=== PATIENT | male | born 1955 | race Caucasian/White ===

== ENCOUNTER 2023-06-07 01:28 | Observation (INO) | payer MEDICARE, OTHER, SELFPAY ==
[2023-06-06 20:43] VITALS: BP 140/77
[2023-06-06 21:03] VITALS: BP 124/69
[2023-06-06 21:23] LABS: % Basophils 0.3 % (0-2); % Eosinophils 2.7 % (0-6); % Immature Granulocytes 0.5 % (0-0.5); % Lymphocytes 13.1 % (20.5-51.1); % Monocytes 13.2 % (1.7-9.3); % Neutrophils 70.2 % (42.2-75.2); Absolute Eosinophils 0.3 10^3/uL (0-0.7); Absolute Immature Granulocytes 0.1 10^3/uL (0-0.05); Absolute Lymphocytes 1.3 10^3/uL (1.2-3.4); Absolute Monocytes 1.3 10^3/uL (0.1-0.6); Hematocrit 42.1 % (39.0-52.0); Hemoglobin 14.5 g/dL (13.0-18.0); Mean Corp Hgb Conc. 34.4 g/dL (33.0-37.0); Mean Corpuscular Hgb 29.2 pg (27.0-31.0); Mean Corpuscular Volume 84.9 fL (80.0-94.0); Mean Platelet Volume 10.6 fL (7.4-10.4); Nucleated Red Blood Cells % 0 % (-); Platelet Count 140 10^3/uL (130-400); Red Blood Cell Count 4.96 10^6/uL (4.70-6.10); Red Cell Dist. Width 12.9 % (11.5-14.5)
[2023-06-06 21:39] LABS: ALT (SGPT) 38 U/L (0-50); AST (SGOT) 31 U/L (17-59); Albumin 4.1 g/dl (3.5-5.0); Alkaline Phosphatase 87 U/L (38-126); Blood Urea Nitrogen 18 mg/dl (9-20); Calcium 9.7 mg/dl (8.4-10.2); Carbon Dioxide 24 mmol/L (22-30); Chloride 102 mmol/L (98-107); Glucose 104 mg/dl (70-99); Potassium 3.8 mmol/L (3.5-5.1); Sodium 135 mmol/L (135-145); Total Bilirubin 0.8 mg/dl (0.2-1.3); Total Protein 6.9 g/dl (6.3-8.2); eGFR > 60.00
[2023-06-06 21:49] LABS: Troponin I < 0.012 ng/ml
[2023-06-06 22:00] VITALS: BP 127/74
[2023-06-06 23:00] VITALS: BP 113/57
[2023-06-07] VITALS: BP 153/67
--- NOTE | 2023-06-07 00:15 | ED.GENMED ---
History of Present Illness
General
Chief Complaint: Chest Pain
Source: patient
Exam Limitations: none
Time Seen by Provider: 06/06/23 21:16
Nursing documentation reviewed up to this point in time: agreed with
Travel History
Have you had any contact with someone who has COVID-19?: No
Do you have any symptoms of coronavirus? Fever > 100 degrees, chills, cough, shortness of breath, sore throat, loss of taste or smell, muscle aches, or headache?: No
History of Present Illness
History of Present Illness:
Patient with history of non-STEMI in 2018, presents to ED secondary to intermittent chest pain over the past 2 days. Chest pain described as indigestion, burning sensation, in the middle of chest, radiating up to his throat, with each episode
lasting seconds to minutes. Patient states the symptoms are similar to 2018, but without associated pressure. Patient was evaluated earlier today at his primary care physician's office and referred to ED for further evaluation and treatment.
Denies shortness of breath. Denies nausea or vomiting. Denies dizziness. Denies diaphoresis. Denies recent illness. Patient does have history reflux, but states that his symptoms are different. Denies recent travel or surgery. Denies leg pain
or swelling. Denies back pain.
Past History
Past History
ED Past Medical History: Other (Hypertension, hyperlipidemia)
Social History
Tobacco: Smoker
Alcohol: None
Family History
Family History: Other (He had a grandfather who had an PR in his 70s. There is a family history of diabetes)
Review of Systems
Review of Systems
Allergies reviewed?: Yes
All Other Systems: ROS reviewed and negative except as documented in HPI and ROS
Constitutional: Reports no symptoms
EENT: Reports no symptoms
Respiratory: Reports no symptoms
Cardiac: Reports chest pain
ABD/GI: Reports no symptoms
: Reports no symptoms
Musculoskeletal: Reports no symptoms
Skin: Reports no symptoms
Neurological: Reports no symptoms
Phy Exam
Physical Exam
Physical Exam:
Physical Exam
General: no apparent distress, not acutely ill. afebrile
Head: nc/at. eomi
Neck: supple. normal range of motion.
Heart: s1/s2 regular rate and rhythm, no murmur. equal radial pulses.
Lungs: no acute respiratory distress. clear bilaterally
Abdomen: normal bowel sounds. not tender.
Neuro: alert and oriented. no focal neurological deficits
Skin: no rash
Psychiatric: well kept. interactive and cooperative
Extremities: no edema. no calf tenderness.
Scores
Heart Score for Chest Pain Patients
STEMI patient?: No
History: Slightly or Non-Suspicious
ECG: Normal
Age: >/= 65 years
Risk Factors: >/= 3 Risk Factors or History of CAD
Troponin: </= Normal Limit
Heart Score for Chest Pain Patients: 4
Heart Score Risk: 20.3% MACE over next 6 weeks
Course
Orders/Labs/Results
Orders:
Orders
06/06/23 20:33
Electrocardiogram (*1) Urgent
Reason for Study: Chest Pain
EKG- Treatment ONCE
06/06/23 21:09
Complete Blood Count/With Diff Urgent
Comprehensive Metabolic Panel Urgent
Troponin I Urgent
06/07/23 00:39
CR Chest - 2 Views Urgent
Comment:
Reason For Exam: chest pain
06/07/23 00:42
Admit/Transfer Patient As Directed
Co-Sign Provider:
Level of Care: Observation services
Assign to:: Telemetry
Physician / Group: Nadeen Vaz
Diagnosis: chest pain
Reason for Telemetry: Chest Pain syndromes
Date to Stop Telemetry: 06/09/23
Time to Stop Telemetry: 11:00
06/07/23 00:43
Code Status As Directed
Resuscitation Status: Do not resuscitate
Reached after discussion with pt or family/Healthcare POA: Yes
DNR Bracelet Application ONCE
06/07/23 02:11
Acetaminophen [Tylenol] 650 mg PO Q4HPRN PRN
Bisacodyl [Dulcolax] 10 mg RECTAL [id number] PRN
Calcium Carbonate Chewable [Tums] 1 tablet PO Q6HPRN PRN
Docusate W/Senna [Senokot-S] 1 tablet PO BIDPRN PRN
Nitroglycerin Sublingual [Nitrostat (Sublingual)] 0.4 mg SL [id number] PRN
Polyethylene Glycol Powder [Miralax] 17 grams PO DAILYPRN PRN
hydrocodone-acetaminophen [Vicodin] 1 ea PO PRN PRN
06/07/23 02:11
CARDIOLOGY CONSULT Routine
Consulting Provider: Carrie Gomez
Was physician already notified: Yes
Activity As Directed
Activity Level: As Tolerated
Vital Signs As Directed
Frequency: Per unit guidelines
DX Deep Vein Thrombosis Video Routine
06/07/23 02:32
Basic Metabolic Panel IN AM
Complete Blood Count/No Diff IN AM
Magnesium IN AM
Troponin I Q6H
06/07/23 06:00
EKG [Electrocardiogram (*1)] IN AM
Reason for Study: Chest Pain
NPO
Allow oral meds: Yes
Allow clear liquids: No
06/07/23 08:00
Aspirin Chewable [Low Strength Aspirin] 81 mg PO DAILY
Losartan/Hydrochlorothiazide [Hyzaar 100-25 Tablet] 1 tab PO DAILY
06/07/23 09:20
Troponin I Q6H
06/07/23 18:00
Atorvastatin [Lipitor] 80 mg PO QPM
Enoxaparin Sodium [Lovenox] 40 mg SC QPM
06/09/23 11:00
DC Protocol for Telemetry ONCE
Abnormal Lab Results
06/06/23
21:09
MPV 10.6 H fL
(7.4-10.4)
Abs Immat Gran (auto) 0.1 H 10^3/uL
(0-0.05)
Absolute Neuts (auto) 7.0 H 10^3/uL
(1.4-6.5)
Absolute Monos (auto) 1.3 H 10^3/uL
(0.1-0.6)
Lymphocytes % 13.1 L %
(20.5-51.1)
Monocytes % 13.2 H %
(1.7-9.3)
Creatinine 0.6 L mg/dL
(0.7-1.3)
Glucose 104 H mg/dl
(70-99)
06/06/23 21:09
06/06/23 21:09
Vital Signs
Initial and Last Documented VS:
Initial Vital Signs
Temp Pulse Resp BP Pulse Ox
99.6 F 88 20 140/77 94
06/06/23 20:43 06/06/23 20:43 06/06/23 20:43 06/06/23 20:43 06/06/23 20:43
Last Documented Vital Signs
Temp Pulse Resp BP Pulse Ox
98 F 73 20 113/70 94
06/07/23 11:44 06/07/23 11:55 06/07/23 11:44 06/07/23 11:55 06/07/23 11:55
MDM/Problems Addressed
MDM/Problems Addressed:
Patient with an unremarkable workup in ED, including normal initial troponin. However, EKG does revealed nonspecific ST depression.
Discussed with Dr. Gomez, cardiology. In light of patient's CAD, recommends further workup, including serial cardiac enzymes as well as possible stress test.
*Critical Care Note
Total Time (30-74mins, 75-104mins- exclusive of procedures): Not Applicable
ED Attending Note
-
Portions of this chart may have been created with voice recognition software.� Occasional wrong word or��sound alike� substitutions may have occurred due to the inherent limitations of voice recognition software.
Discharge Plan
Departure
Patient Disposition: Admit
Date of Disposition: 06/07/23
Time of Disposition: 00:19
Presentation/result/management discussed w/ accepting MD/DO: Hospitalist
Discharge Problem:
Chest pain
Interventions
Interventions:
*Risk Screen - Suicide Last Done: 06/06/23 20:43
*General Assessment Last Done: 06/06/23 20:43
*Neglect/Abuse Screening Last Done: 06/06/23 20:43
ED- Fall Risk Assessment Last Done: 06/06/23 20:43
*ED COVID-19 Vaccine History Last Done: 06/06/23 20:43
*Nursing Disposition Last Done: 06/07/23 01:53
ED- Cardiac Assessment Last Done: 06/06/23 21:12
Discharge Date and Time
Discharge Date/Time: 06/07/23 01:53
--- NOTE | 2023-06-07 00:26 | HPS.HSE ---
Family Physician
-
Family Physician: Zachariah Gray
Chief Complaint
-
chest pain
History of Present Illness
Mr. Bhavin Andino is a 68 yo man with hx HTN, HLD, CAD (NSTEMI 2018 s/p PCI), GERD, presents to the ER with chest pain over past 2 days.
Patient states pain is center of chest, feels like burning. He has history of heart burn but this felt different, more central and different intensity. He states pain is not exacerbated by movement but occurred when sitting still. No
fevers/chills. No nausea/vomiting/diarrhea. He took his aspirin this evening. No rash or swelling.
Medical History
Past Medical History
Past Medical History: Reports Other ( HTN, HLD, CAD (NSTEMI 2018 s/p PCI), GERD)
Past Surgical History: Reports Other
Social History
Tobacco: Former Smoker
Alcohol: Occasional
Family History
Family History: Not pertinent
Allergies / Home Medications
Allergies reflects when Allergies were last updated in [employer].
Home Medications with original date entered in [employer]
Allergy/Medication List:
Allergies
Allergy/AdvReac Type Severity Reaction Status Date / Time
No Known Allergies Allergy Verified 06/06/23 20:42
Home Medications
Curamed 1 tab PO BID 06/04/17
aspirin 81 mg chewable tablet 81 mg PO DAILY 06/05/17
atorvastatin 80 mg tablet 80 mg PO QPM ##90 06/05/17
metoprolol succinate 25 mg tablet,extended release 24 hr 25 mg PO DAILY #90 tabs 06/05/17
nitroglycerin 0.4 mg sublingual tablet 0.4 mg sublingual [id number] PRN chest pain #25 tabs 06/05/17
hydrocodone 5 mg-acetaminophen 300 mg tablet (Vicodin) 1 ea PO PRN PRN pain 03/28/21
losartan 100 mg-hydrochlorothiazide 25 mg tablet 1 tab PO DAILY 06/07/23
Review of Systems
-
History Source: Patient
A 12 point ROS was completed and negative except as noted: Yes
Physical Exam
Vital Signs
Vital Signs
Temp Pulse Resp BP Pulse Ox
99.6 F 85 21 113/57 93
06/06/23 20:43 06/06/23 23:00 06/06/23 23:00 06/06/23 23:00 06/06/23 23:00
Physical Exam
General: No Apparent Distress and Obese
HEENT: PERRLA
Respiratory: Clear; No Wheezes
Cardiac: S1/S2 and Regular Rhythm
GI: Soft and Non Tender
Musculoskeletal: No Edema
Skin: Warm and Dry; No Rash
Neuro: AO x 3
Psych: Calm
Laboratory Results
-
06/06/23 21:09
06/06/23 21:09
Laboratory Results
Total Bilirubin 0.8 mg/dl (0.2-1.3) 06/06/23 21:09
AST 31 U/L (17-59) 06/06/23 21:09
ALT 38 U/L (0-50) 06/06/23 21:09
Alkaline Phosphatase 87 U/L (38-126) 06/06/23 21:09
Troponin I < 0.012 ng/ml 06/06/23 21:09
Data Reviewed
-
Diagnostic Radiology: Report Reviewed by me
Lab Data: Labs Reviewed by me
Impression/Plan
-
Mr. Bhavin Andino is a 68 yo man with hx HTN, HLD, CAD (NSTEMI 2018 s/p PCI), GERD, presents to the ER with intermittent chest pain over past 2 days.
Triage VS: T 99.6, P 88, RR 20, BP 140/77, Spo2 94%
LABS: WBC 10, Hg 14.5, PLT 140, Na 135, K+ 3.8, C 102, CO2 24, BUN 18, Cr 0.6, Glucose 104, liver enzymes WNL, Trop < 0.012
EKG: NSR @ 86, no ST elevations/depressions
Chest pain
Hx CAD, s/p PCI 2017
-patient had aspirin this evening
-admit to observation, telemetry
-trend Troponins
-NPO after MN for possible stress test (post cardiology eval)
-Dr. Gomez discussed case with ER; formal cardiology consult
-LPN MEDICAL ASSISTANT asa/statin
-hold LPN MEDICAL ASSISTANT metop for possible stress test
-if chest pain recurs repeat EKG; would also give tums PRN to see if helps sx as may be related to indigestion
HTN
-LPN MEDICAL ASSISTANT losartan-HCTZ
DVT PPx lovenox subQ
DNR - discussed at bedside with present on admission
[2023-06-07 01:00] VITALS: BP 106/59
[2023-06-07 02:08] VITALS: BP 101/86
[2023-06-07 02:24] VITALS: BMI 36.3
[2023-06-07 02:40] LABS: Hematocrit 39.3 % (39.0-52.0); Hemoglobin 13.9 g/dL (13.0-18.0); Mean Corp Hgb Conc. 35.4 g/dL (33.0-37.0); Mean Corpuscular Hgb 29.8 pg (27.0-31.0); Mean Corpuscular Volume 84.3 fL (80.0-94.0); Mean Platelet Volume 10.2 fL (7.4-10.4); Platelet Count 147 10^3/uL (130-400); Red Blood Cell Count 4.66 10^6/uL (4.70-6.10); Red Cell Dist. Width 12.9 % (11.5-14.5); White Blood Cell Count 9.2 10^3/uL (4.8-10.8)
--- NOTE | 2023-06-07 02:43 | PTCARENOTE ---
Received pt from ED. AOX3. Pt ambulated from stretcher to bed w/ steady gait. Tele- SR. VSS. Pt reports no CP at this time. EKG and labs obtained. Oriented to unit. Pt answered admission questions approp. Currently in bed; call avis w/in reach.
[2023-06-07 03:15] LABS: Blood Urea Nitrogen 15 mg/dl (9-20); Calcium 9.3 mg/dl (8.4-10.2); Carbon Dioxide 24 mmol/L (22-30); Chloride 103 mmol/L (98-107); Estimated Creatinine Clearance > 125 ml/min; Glucose 108 mg/dl (70-99); Potassium 3.6 mmol/L (3.5-5.1); Sodium 136 mmol/L (135-145); eGFR > 60.00
[2023-06-07 03:25] LABS: Troponin I < 0.012 ng/ml
[2023-06-07 08:01] VITALS: BP 136/74
[2023-06-07] MEDS: LOW STRENGTH ASPIRIN 81 MG PO (08:23)
[2023-06-07] MEDS: HYZAAR 100-25 TABLET 1 TAB PO (08:23)
--- NOTE | 2023-06-07 08:36 | CON.CAR ---
Addendum entered and electronically signed by Bryce Abebe MD 06/07/23 11:50:
I saw and examined the patient.
The Small Lot Operator's note was reviewed and I agree with the note.
Comment:
GEN: No distress, awake, Ox3
HEENT: supple, anicteric, mmm
LUNGS: CTA, no wheezes/rales
CV: Reg, S1/S2, 1/6 syst LSB, no gallop
ABD: soft, BS+, NT/ND
EXT: No edema
NEURO: Gross non-focal
SKIN: No rash
Plan:
He presents with atypical epigastric pain. He has a history of PCI/CAD, hypertension, hyperlipidemia, and vascular disease.
Cardiac troponins are negative x 3. EKG reveals sinus rhythm with nonspecific ST abnormalities.
Continue risk factor modification. Continue aspirin, Toprol, atorvastatin, and Hyzaar. Okay for discharge.
Blood pressure stable and controlled.
Will arrange outpatient stress test.
Original Note:
Consultation
Consultation Request
Date/Time Consultation Requested: 06/07/2023
Date/Time Consultation Performed: 06/07/2023
Requesting Provider: Dr. Becerra
Performing Provider: Dr. Abebe
Reason for Consultation: Chest pain
Medical History
-
History of Present Illness:
HPI: Bhavin is a 68 year old male with PMH of CAD w/ prior circ PCI, HTN, HLD, GERD, subclavian artery stenosis, and prior tobacco abuse who presented to [facility] for evaluation of chest burning/discomfort. Symptoms started night while at
rest. Burning lasted only a few seconds and would occur randomly, typically with coughing, drinking, and eating. He did not try taking anything to alleviate the symptoms as they were so short lived. He notes pain feels different from his prior [place]
pain, however given ongoing symptoms with his history, he decided to come in for evaluation. In ER, workup revealed negative troponin x 2 with otherwise benign workup. He was admitted overnight to observation and cardiology was consulted this AM to
assess. He reports he has been feeling well overnight with no significant recurrence of pain and he is pain free at this time. He denies noting any associated SOB, palpitations, dizziness/lightheadedness, diaphoresis, or nausea. He notes in the past
he has had chest burning associated with eating that has improved with taking prilosec for a few weeks.
PMH:
CAD
h/o NSTEMI w/ REGINA to Circ 06/04/2017
Hypertension
Hyperlipidemia
GERD
Subclavian artery stenosis
Former smoker
Past Medical History
Past Medical History: Other (In HPI)
Past Surgical History: Cardiac (PCI of circumflex 06/04/2017)
Social History
Tobacco: Former Smoker
Alcohol: Occasional
Drug: None
Personal:
Living: With Family
Family History
Family History: Cancer
Allergies / Home Medications
Allergy/AdvReac Type Severity Reaction Status Date / Time
No Known Allergies Allergy Verified 06/06/23 20:42
�Medication �Instructions �Recorded �Confirmed �Type
Curamed 1 tab PO BID 06/04/17 06/07/23 History
aspirin 81 mg chewable tablet 81 mg PO DAILY 06/05/17 06/07/23 Rx
atorvastatin 80 mg tablet 80 mg PO QPM ##90 06/05/17 06/07/23 Rx
metoprolol succinate 25 mg 25 mg PO DAILY #90 tabs 06/05/17 06/07/23 Rx
tablet,extended release 24 hr
nitroglycerin 0.4 mg sublingual 0.4 mg sublingual [id number] PRN 06/05/17 06/07/23 Rx
tablet chest pain #25 tabs
hydrocodone 5 mg-acetaminophen 300 1 ea PO PRN PRN pain 03/28/21 06/07/23 History
mg tablet (Vicodin)
losartan 100 1 tab PO DAILY 06/07/23 06/07/23 History
mg-hydrochlorothiazide 25 mg tablet
Review of Systems
-
History Source: Patient
All other systems: Negative unless noted
Physical Exam
Vital Signs
Temp Pulse Resp BP Pulse Ox
98.9 F 79 20 136/74 93
06/07/23 07:59 06/07/23 08:23 06/07/23 07:59 06/07/23 08:23 06/07/23 07:59
Lab Results
06/07/23 02:32
06/07/23 02:32
Troponin I < 0.012 ng/ml 06/07/23 02:32
Physical Exam
General: Well Developed, Well Nourished and No Apparent Distress
HEENT: Normocephalic, Anicteric and Moist Mucous Membranes
Respiratory: Clear and Non Labored Respirations
Cardiac: S1/S2 and Regular Rhythm
Musculoskeletal: No Clubbing, No Cyanosis and No Edema
Skin: Warm and Dry
Neuro: AO x 3 and Nonfocal/Grossly Intact
Psych: Calm
Impression / Plan
-
PCP: Dr. Gray
Sanitation Lead: Dr. Gomez
Impression:
Presented with chest discomfort
CAD
h/o NSTEMI w/ REGINA to Circ 06/04/2017
Hypertension
Hyperlipidemia
GERD
Subclavian artery stenosis
Former smoker
Echo 06/05/2017: EF 60-65%, trace MR, mildly dilated aortic root, 3.9cm at sinus of Valsalva
Stress Echo 10/17/2022: No ECG or echocardiographic evidence of myocardial ischemia. Overall low risk stress test, DTS +7
Plan:
-Presented with chest discomfort/burning that was exacerbated by coughing, eating, and drinking.
-Troponin negative x 2. Final troponin pending this AM.
-He has remained chest pain free overnight and has no complaints this AM.
-He had recent stress echo 09/2022 which was negative for ischemia.
-EKG SR with nonspecific ST changes. No acute ischemic changes noted.
-Discussed stress testing with patient given history and chest pain. He prefers to have testing as OP.
-He has chronic back pain which limits his ability to exercise/walk on a treadmill. Lexiscan stress test arranged as OP.
-If 3rd troponin remains negative, ok for discharge.
-BP stable. Continue losartan/HCTZ and toprol.
-Continue aspirin 81mg daily
-Continue lipitor 80mg daily
-Follow up has been arranged. if he has any recurrent/worsening pain, discussed he should return to ER.
HPI: Bhavin is a 68 year old male with PMH of CAD w/ prior circ PCI, HTN, HLD, GERD, subclavian artery stenosis, and prior tobacco abuse who presented to [facility] for evaluation of chest burning/discomfort. Symptoms started night while at
rest. Burning lasted only a few seconds and would occur randomly, typically with coughing, drinking, and eating. He did not try taking anything to alleviate the symptoms as they were so short lived. He notes pain feels different from his prior [place]
pain, however given ongoing symptoms with his history, he decided to come in for evaluation. In ER, workup revealed negative troponin x 2 with otherwise benign workup. He was admitted overnight to observation and cardiology was consulted this AM to
assess. He reports he has been feeling well overnight with no significant recurrence of pain and he is pain free at this time. He denies noting any associated SOB, palpitations, dizziness/lightheadedness, diaphoresis, or nausea. He notes in the past
he has had chest burning associated with eating that has improved with taking prilosec for a few weeks.
Data Reviewed
-
EKG: Tracing Personally Visualized and interpreted
Radiology: Report Reviewed by me
Labs: Labs Reviewed by me
Old Records: Reviewed
[2023-06-07] MEDS: TOPROL XL 25 MG PO (09:20)
[2023-06-07 09:53] LABS: Troponin I < 0.012 ng/ml
--- NOTE | 2023-06-07 10:12 | W.DCSUMMARY ---
Discharge Summary
Discharge Data
Date of Admission: 06/07/23
Date of Discharge: 06/07/23
-
Pending Results: No
Hospital Course
Discharge diagnosis:
Chest pain
History of coronary artery disease status post stent placement
Benign essential hypertension
Morbid obesity
Gastroesophageal reflux disease
Consults: Cardiology
Hospital course:
68-year-old male with a past medical history of coronary artery disease status post stent placement, hypertension, hyperlipidemia, and GERD was admitted for chest pain. Patient reports having burning substernal chest pain at rest, this is different
from his usual reflux. Patient was seen in conjunction cardiology. Serial troponins were negative, serial EKGs show sinus rhythm with nonspecific ST changes. Cardiology recommends outpatient stress test, and to continue Hyzaar, aspirin, and
atorvastatin. Metoprolol succinate 25 mg daily was added, he received a prescription for this. Patient is medically stable for discharge. He needs to follow-up with his usual material control clerk in the office, as well as his primary care doctor in 1
week.
Disposition: Home self-care
Discharge Plan
-
Patient Disposition: Home (Routine Discharge)
Discharge Diagnosis/Procedures: Chest pain, history of coronary artery disease, hypertension, hyper anemia, obesity
Condition: Fair
Diet: Low Fat and Low Cholesterol
Activity: As tolerated
Driving Restrictions: As prior to admission
Activity Restrictions/Additional Instructions:
Follow-up with cardiology as directed.
Referrals:
Zachairah Gray MD [Family Provider] - in one week
Jaqui Chambers PA-C [Specified Professional Personl] - 07/03/23 11:00 am (You have a follow up visit with Dr. Gomez's PA, Jaqui Chambers, at the [place] office. Please call with questions. )
Prescriptions:
New
metoprolol succinate 25 mg Tablet Extended Release 24 Hr
25 mg PO DAILY Qty: 30 0RF
Continued
Curamed
1 tab PO BID
atorvastatin 80 MG tablet
80 mg PO QPM Qty: 90 3RF
aspirin 81 MG tablet,chewable
81 mg PO DAILY 0RF
metoprolol succinate 25 MG tablet extended release 24 hr
25 mg PO DAILY Qty: 90 3RF
nitroglycerin 0.4 MG tablet, sublingual
0.4 mg sublingual [id number] PRN (Reason: chest pain) Qty: 25 2RF
hydrocodone-acetaminophen [Vicodin] 1 EACH tablet
1 ea PO PRN PRN (Reason: pain)
losartan-hydrochlorothiazide 100-25 mg Tablet
1 tab PO DAILY
Discharge Orders:
Discharge Patient (As Directed); Ordered 06/07/23
Ordered By: Buck Trinidad
Care Plan Goals
Care Plan Goals:
Problem: Readiness for enhanced knowledge related to diagnosis and treatment plan
Goal: Understand your diagnosis and treatment plan needs, including medications if applicable.
Instructions: Know your diagnosis, underlying causes and treatment plan options, including medications if applicable. Consult with your health care team to learn about your diagnosis and treatment plan, including medications if applicable.
Discharge Date and Time
Discharge Date/Time: 06/07/23 12:16
Print Language: TRINIDADIAN
--- NOTE | 2023-06-07 11:35 | CM ---
CM following for DC planning needs.
Met w/ patient at bedside to complete initial assessment.
Pt. resides w/ spouse in a private home. Functionally, patient is indep. w/ ADLs, mobility without the use of any assisted device.
Pt. is anticipating DC today and has no concerns or identified needs.
REED reviewed; copy given/ signed copy in chart.
PLAN: HOME, no needs.
[2023-06-07 11:55] VITALS: BP 113/70
== END 2023-06-07 12:16 | disposition home or self-care (01) ==
LOC: IVU 01:28
PROVIDERS: Emergency Medicine; ADMITTING PHYSICIAN Student in an Organized Health Care Education/Training Program; ATTENDING PHYSICIAN Family Medicine; EMERGENCY PHYSICIAN Emergency Medicine; FAMILY PHYSICIAN Family Medicine; OTHER PHYSICIAN Internal Medicine Cardiovascular Disease
DX: R07.89 Other chest pain (principal); I10 Essential (primary) hypertension; E78.5 Hyperlipidemia, unspecified; I25.10 Atherosclerotic heart disease of native coronary artery without angina pectoris; K21.9 Gastro-esophageal reflux disease without esophagitis; I77.1 Stricture of artery; G89.29 Other chronic pain; M54.9 Dorsalgia, unspecified; E66.01 Morbid (severe) obesity due to excess calories; I25.2 Old myocardial infarction; Z66 Do not resuscitate; Z68.36 Body mass index [BMI] 36.0-36.9, adult; Z79.82 Long term (current) use of aspirin; Z79.899 Other long term (current) drug therapy; Z87.891 Personal history of nicotine dependence; Z95.5 Presence of coronary angioplasty implant and graft
CPT/HCPCS: 71046; 80048; 80053; 83735; 84484; 85025; 85027; 93005; 99285; G0378

== ENCOUNTER → 2023-06-14 08:44 | Outpatient (REF) | payer MEDICARE, OTHER, SELFPAY | LOC: RAD 08:44 | PROVIDERS: ATTENDING PHYSICIAN Surgery Vascular Surgery | DX: I77.1 Stricture of artery (principal) | CPT/HCPCS: 93880; 93923 ==

== ENCOUNTER → 2023-06-17 11:59 | Outpatient (REF) | payer MEDICARE, OTHER, SELFPAY | LOC: DHCBC/DCA 11:59 | PROVIDERS: ATTENDING PHYSICIAN Physician Assistant; FAMILY PHYSICIAN Family Medicine | DX: R07.9 Chest pain, unspecified (principal) | CPT/HCPCS: 78452; 93017; A9500; J2785 ==

== ENCOUNTER → 2023-12-23 14:10 | Outpatient (REF) | payer MEDICARE, OTHER, SELFPAY | LOC: HWRAD 14:10 | PROVIDERS: ATTENDING PHYSICIAN Nurse Practitioner Family; FAMILY PHYSICIAN Family Medicine | DX: R31.29 Other microscopic hematuria (principal) | CPT/HCPCS: 74176 ==

== ENCOUNTER → 2024-01-13 07:50 | Outpatient (REF) | payer MEDICARE, OTHER, SELFPAY | LOC: HWRAD 07:50 | PROVIDERS: ATTENDING PHYSICIAN Nurse Practitioner Family; FAMILY PHYSICIAN Family Medicine | DX: R74.8 Abnormal levels of other serum enzymes (principal) | CPT/HCPCS: 76700 ==

== ENCOUNTER → 2024-01-21 07:02 | Outpatient (REF) | payer MEDICARE, OTHER, SELFPAY | LOC: SDSPAT 07:02 | PROVIDERS: ATTENDING PHYSICIAN Specialist; FAMILY PHYSICIAN Family Medicine | DX: N21.0 Calculus in bladder (principal) | CPT/HCPCS: 36415; 93005 ==

== ENCOUNTER 2024-01-30 06:31 | Day surgery (SDC) | payer MEDICARE, OTHER, SELFPAY ==
[2024-01-21 10:08] VITALS: BMI 35.8
[2024-01-30] VITALS (10 sets, daily range): BP systolic 130–158; BP diastolic 69–111; BMI 35.8
[2024-01-30] MEDS: Pyridium 200 MG PO (10:12)
[2024-01-30] MEDS: FLOMAX 0.4 MG PO (10:12)
== END 2024-01-30 11:39 | disposition home or self-care (01) ==
LOC: SDS 06:31
PROVIDERS: ATTENDING PHYSICIAN Specialist
DX: N21.0 Calculus in bladder (principal); N40.0 Benign prostatic hyperplasia without lower urinary tract symptoms; R97.20 Elevated prostate specific antigen [PSA]
CPT/HCPCS: 52318; 82365

== ENCOUNTER → 2024-06-24 08:57 | Outpatient (REF) | payer MEDICARE, OTHER, SELFPAY | LOC: CLAB 08:57 | PROVIDERS: ATTENDING PHYSICIAN Specialist | DX: R97.20 Elevated prostate specific antigen [PSA] (principal) | CPT/HCPCS: 88305 ==

== ENCOUNTER → 2024-07-29 08:45 | Outpatient (REF) | payer MEDICARE, OTHER, SELFPAY | LOC: RAD 08:45 | PROVIDERS: ATTENDING PHYSICIAN Surgery Vascular Surgery; FAMILY PHYSICIAN Family Medicine | DX: I77.1 Stricture of artery (principal) | CPT/HCPCS: 93923 ==

== ENCOUNTER → 2024-10-15 07:08 | Outpatient (REF) | payer MEDICARE, OTHER, SELFPAY | LOC: HWRCS 07:08 | PROVIDERS: ATTENDING PHYSICIAN Internal Medicine Cardiovascular Disease; FAMILY PHYSICIAN Family Medicine | DX: I10 Essential (primary) hypertension (principal) | CPT/HCPCS: 93306 ==

== ENCOUNTER → 2024-10-22 06:47 | Outpatient (REF) | payer MEDICARE, OTHER, SELFPAY | LOC: RAD 06:47 | PROVIDERS: ATTENDING PHYSICIAN Internal Medicine Cardiovascular Disease; FAMILY PHYSICIAN Family Medicine | DX: I73.9 Peripheral vascular disease, unspecified (principal) | CPT/HCPCS: 93925 ==

== ENCOUNTER → 2025-01-28 10:27 | Outpatient (REF) | payer MEDICARE, OTHER, SELFPAY | LOC: REG 10:27 | PROVIDERS: ATTENDING PHYSICIAN Family Medicine | DX: M54.50 Low back pain, unspecified (principal) | CPT/HCPCS: 72110 ==